=== PATIENT | female | born 1950 | race Caucasian/White ===

== ENCOUNTER 2018-06-26 23:12 | Emergency (ER) | payer MEDICARE, OTHER ==
[~2018-06-26] VITALS: Ht 154.9 cm; Wt 63.5 kg
[~2018-06-26 23:12] MED LIST: HYDACE5 PO; RXHYDACE PO
[2018-06-26] MEDS ORDERED: CEPH500 PO (23:26)
[2018-06-26] MEDS ORDERED: Ranitidine HCl300 MG (23:29)
[2018-06-26] MEDS ORDERED: AMLO5 PO (23:29)
== END 2018-06-26 23:33 | disposition home or self-care (01) ==
LOC: ER 23:12
DX: S70.362A Insect bite (nonvenomous), left thigh, initial encounter (principal); Z88.2 Allergy status to sulfonamides; Z88.1 Allergy status to other antibiotic agents; Z79.899 Other long term (current) drug therapy; Z87.891 Personal history of nicotine dependence; W57.XXXA Bitten or stung by nonvenomous insect and other nonvenomous arthropods, initial encounter
CPT/HCPCS: 99283